=== PATIENT | male | born 1950 | race Caucasian/White ===

== ENCOUNTER 2018-04-23 13:13 | Emergency (ER) | payer OTHER ==
[2018-04-23 13:25] VITALS: BP 125/56; PULSE 77; TEMP 97.8; BMI 27.6
[2018-04-23] MEDS ORDERED: diazePAM 5 MG TABLET PO ONE (14:35)
[2018-04-23] MEDS ORDERED: KETOROLAC TROMETHAMINE 30 MG/1 ML VIAL IM ONE (14:35)
--- NOTE | 2018-04-23 14:41 | PDOC ---
History of Present Illness - General Chief Complaint: Head/Neck problem Stated Complaint: ARM NUMBNESS, NECK PAIN, Time Seen by Provider: 04/23/18 14:19 History Source: Patient - History of Present Illness Occurred: reports: other Severity: reports: severe Upper Extremity Pain Location: left: shoulder Past History - Past Medical History Allergies/Adverse Reactions: Allergies Allergy/AdvReac Type Severity Reaction Status Date / Time No Known Allergies Allergy Verified 04/23/18 13:24 Home Medications: Ambulatory Orders Naproxen 500 mg PO BID #20 tablet 04/23/18 COPD: No - Suicide/Smoking/Psychosocial Hx Smoking History: Never smoked Review of Systems - Review of Systems Constitutional: No: Chills, Fever Respiratory: No: Shortness of Breath Cardiac (ROS): No: Chest Pain Neurological: No: Headache, Numbness, Tingling, Weakness, Dizziness *Physical Exam - Vital Signs Last Vital Signs Temp Pulse Resp BP Pulse Ox 97.8 F 77 18 125/56 L 99 04/23/18 13:16 04/23/18 13:16 04/23/18 13:16 04/23/18 13:16 04/23/18 13:16 - Physical Exam General Appearance: Yes: Appropriately Dressed, Mild Distress HEENT: positive: Normal Voice Neck: positive: Supple. negative: Tender Respiratory/Chest: positive: Lungs Clear, Normal Breath Sounds. negative: Respiratory Distress Cardiovascular: positive: Regular Rate, S1, S2 Extremity: positive: Normal Inspection, Tender (to superior/mid L shoulderblade , painful ROM) Integumentary: positive: Dry, Warm. negative: Rash Neurologic: positive: Fully Oriented, Alert, Normal Mood/Affect, Motor Strength 5/5. negative: Sensory Deficit ED Treatment Course - RADIOLOGY Radiology Studies Ordered: Category Date Time Status SHOULDER-LEFT [RAD] Stat Radiology 04/23/18 14:36 Ordered Medical Decision Making - Medical Decision Making 04/23/18 14:36 67-year-old male, history of asthma, currently on doxycycline after removing a tick from L leg 5 days ago, here with L shoulder pain. As per , patient started reporting L shoulder pain sometime after helping his daughter shovel snow 3 days ago. Patient reports pain is located to his left shoulder blade, sharp, constant and only worse with certain movements. No sensory changes or weakness to upper extremity and no neck pain, headache or dizziness. Has not taken anything for pain. Pt denies CP or SOB See exam Possibly MSK L shoulder pain Possibly incited by shoveling snow No fall Unlikely cardiac No neuro sxs to suggest radiculopathy at this time Stable w/ exam only remarkable for sig ttp over superior to mid aspect of L shoulder blade w/ painful ROM -pain control -reassess 04/23/18 15:44 Xray unremarkable. Patient reports some improvement in pain. Will discharge with pain control and have patient follow up with PMD as needed *DC/Admit/Observation/Transfer Diagnosis at time of Disposition: Shoulder pain, left Qualifiers: Chronicity: acute Qualified Code(s): M25.512 - Pain in left shoulder - Discharge Dispostion Disposition: HOME Condition at time of disposition: Improved - Prescriptions Prescriptions: Naproxen 500 mg PO BID #20 tablet - Referrals Referrals: Narsin Collado MD [Primary Care Provider] - - Patient Instructions Printed Discharge Instructions: DI for Shoulder Pain Additional Instructions: X-ray showed no fractures. Your pain is most likely muscular. Take medication as directed. If symptoms persist after this coming week, follow-up with your primary care physician - Post Discharge Activity
[2018-04-23] MEDS ORDERED: diazePAM 5 MG TABLET ONE (14:44)
[2018-04-23] MEDS ORDERED: KETOROLAC TROMETHAMINE 30 MG/1 ML VIAL ONE (14:44)
== END 2018-04-23 16:30 | disposition home or self-care (01) ==
LOC: JER 13:13
PROC: 3E0233Z Introduction of Anti-inflammatory into Muscle, Percutaneous Approach (ICD-10-PCS; principal; 2018-04-23)
DX: M25.512 Pain in left shoulder (principal); X50.0XXA Overexertion from strenuous movement or load, initial encounter; Y93.H1 Activity, digging, shoveling and raking; Y92.89 Other specified places as the place of occurrence of the external cause; Y99.8 Other external cause status
CPT/HCPCS: 73030-TC-LT-FY; 96372; 99281-25

== ENCOUNTER 2018-10-18 13:47 | Inpatient (IN) | payer BC, OTHER ==
--- NOTE | 2018-10-18 13:56 | PDOC ---
Rapid Medical Evaluation Chief Complaint: Urinary Problem Time Seen by Provider: 10/18/18 13:52 Medical Evaluation: Allergies Allergy/AdvReac Type Severity Reaction Status Date / Time No Known Allergies Allergy Verified 04/23/18 13:24 10/18/18 13:52 I have briefly evaluated the patient Pt presents for urinary retention for 1 day. States he was only able to urinate a little at the doctors office this afternoon Exam: TTP of the suprapubic area. L CVA tenderness Orders: Urine, labs Pt to proceed to the ER for further evaluation Discharge Disposition - Diagnosis Inability to urinate - Referrals - Patient Instructions - Post Discharge Activity
[2018-10-18 14:48] LABS: BASO % 0.3 % (0-2.0); EOS % 0.5 % (0-4.5); HEMATOCRIT 46.6 % (35.4-49); HEMOGLOBIN 15.4 GM/dL (11.7-16.9); LYMPH % 12.1 % (8-40); MCH 29.7 pg (25.7-33.7); MCHC 33.1 g/dl (32.0-35.9); MEAN CELL VOLUME 89.7 fl (80-96); MEAN PLT VOLUME 7.3 fl (7.5-11.1); MONO % 4.1 % (3.8-10.2); PLATELET COUNT 204 K/MM3 (134-434); RBC 5.19 M/mm3 (4.00-5.60); WHITE BLOOD COUNT 12.8 K/mm3 (4.0-10.0)
[2018-10-18 14:49] LABS: URINE APPEARANCE CLEAR; URINE BILIRUBIN NEGATIVE (NEGATIVE); URINE COLOR YELLOW; URINE GLUCOSE (UA) NEGATIVE (NEGATIVE); URINE KETONE TRACE (NEGATIVE); URINE LEUK ESTERASE NEGATIVE (NEGATIVE); URINE NITRITE NEGATIVE (NEGATIVE); URINE PROTEIN NEGATIVE (NEGATIVE)
[2018-10-18 14:59] LABS: INR 1.03 (0.83-1.09); PROTHROMBIN TIME (PATIENT) 12.1 SEC (9.7-13.0)
[2018-10-18 15:22] LABS: ALBUMIN 4.2 g/dl (3.4-5.0); BILIRUBIN,TOTAL 0.6 mg/dL (0.2-1); CALCIUM 9.7 mg/dL (8.5-10.1); CREATININE 1.2 mg/dL (0.55-1.3); POTASSIUM 4.1 mmol/L (3.5-5.1); TOT PROT 7.2 g/dl (6.4-8.2)
--- NOTE | 2018-10-18 16:07 | PDOC ---
Documentation entered by Elsie Badillo SCRIBE, acting as scribe for Brendon Araujo MD. Brendon Araujo MD: This documentation has been prepared by the Justino turner Renju, SCRIBE, under my direction and personally reviewed by me in its entirety. I confirm that the documentation accurately reflects all work, treatment, procedures, and medical decision making performed by me. History of Present Illness - General History Source: Patient Exam Limitations: No Limitations - History of Present Illness Initial Comments: 10/18/18 15:37 The patient is a 68 year old macedonian-speaking male with a history of prostate disease and asthma who presents to the emergency department for evaluation of a two day history of urinary retention. Patient states he did not have any symptoms last night, but endorses urinary frequency, noting he would output a minimal amount of urine every 30 minutes. Today, the patient reports waking up with moderate lower abdominal pain and left flank pain with associated symptoms of abdominal distention, dysuria, and decreased urinary output with urinary frequency. He also endorses nausea with one episode of non bloody emesis after eating breakfast this morning. Patient denies taking medication for the aforementioned pain. He states he saw his primary doctor last week for urinary frequency. The patient denies chest pain, shortness of breath, headache, and dizziness. Denies fevers, chills, diarrhea, and constipation. Allergies: No known allergies. Social History: No reported alcohol, cigarette, or drug use. Surgical History: Denies. PCP: Dr. Nasrin Collado <Brendon Araujo - Last Filed: 10/18/18 18:12> <Marcia Manuel - Last Filed: 10/18/18 19:10> - General Chief Complaint: Urinary Problem Stated Complaint: DIFFICULTY URINARY Time Seen by Provider: 10/18/18 13:52 Past History - Past Medical History Asthma: Yes COPD: No - Suicide/Smoking/Psychosocial Hx Smoking History: Never smoked <Brendon Araujo - Last Filed: 10/18/18 18:12> <Marcia Manuel - Last Filed: 10/18/18 19:10> - Past Medical History Allergies/Adverse Reactions: Allergies Allergy/AdvReac Type Severity Reaction Status Date / Time No Known Allergies Allergy Verified 04/23/18 13:24 Review of Systems - Review of Systems Constitutional: No: Chills, Fever Respiratory: No: Cough, Shortness of Breath Cardiac (ROS): No: Chest Pain ABD/GI: Yes: Nausea, Vomiting. No: Constipated, Diarrhea : Yes: See HPI Neurological: No: Headache All Other Systems: Reviewed and Negative <Brendon Araujo - Last Filed: 10/18/18 18:12> *Physical Exam - Vital Signs Last Vital Signs Temp Pulse Resp BP Pulse Ox 97.5 F L 55 L 24 H 129/75 96 10/18/18 13:52 10/18/18 13:52 10/18/18 13:52 10/18/18 13:52 10/18/18 13:52 - Physical Exam Comments: 10/18/18 15:42 GENERAL: The patient is awake, alert, and fully oriented, in no acute distress. HEAD: Normal with no signs of trauma. EYES: Pupils equal, round and reactive to light, extraocular movements intact, sclera anicteric, conjunctiva clear with no pallor. ENT: Ears normal, nares patent, Moist mucous membranes. NECK: Normal range of motion, supple without, JVD, or masses. LUNGS: Breath sounds equal, clear to auscultation bilaterally. No wheeze/ crackles. HEART: Regular rate and rhythm, normal S1 and S2 without murmur or rub. ABDOMEN/: (+)Positive left CVA discomfort to palpation. (+)distended bladder palpable to below the umbilicus. no hernia, no edema. Uncircumcised, (+)otto catheter in place with 50cc of pink urine. Otto catheter flushed with small amount of blood tinged output, but reobstruction. EXTREMITIES: Normal range of motion, no edema. No clubbing or cyanosis. No cords, erythema, or tenderness. NEUROLOGICAL: Cranial nerves II through XII grossly intact. Normal speech, normal gait. PSYCH: Normal mood, normal affect. SKIN: Warm, Dry, normal turgor, no rashes or lesions noted. <Brendon Araujo - Last Filed: 10/18/18 18:12> - Vital Signs Last Vital Signs Temp Pulse Resp BP Pulse Ox 97.5 F L 70 18 144/86 98 10/18/18 13:52 10/18/18 17:22 10/18/18 17:22 10/18/18 17:22 10/18/18 18:33 <Marcia Manuel - Last Filed: 10/18/18 19:10> ED Treatment Course - LABORATORY CBC & Chemistry Diagram: 10/18/18 14:33 10/18/18 14:30 - ADDITIONAL ORDERS Additional order review: Laboratory Results 10/18/18 10/18/18 10/18/18 14:33 14:33 14:30 PT with INR 12.10 INR 1.03 Sodium 137 Potassium 4.1 Chloride 105 Carbon Dioxide 27 Anion Gap 6 L BUN 22 H Creatinine 1.2 Est GFR (CKD-EPI)AfAm 71.58 Est GFR (CKD-EPI)NonAf 61.76 Random Glucose 174 H Calcium 9.7 Total Bilirubin 0.6 AST 23 ALT 34 Alkaline Phosphatase 55 Total Protein 7.2 Albumin 4.2 Urine Color Yellow Urine Appearance Clear Urine pH 6.0 Ur Specific [place] 1.023 Urine Protein Negative Urine Glucose (UA) Negative Urine Ketones Trace H Urine Blood Negative Urine Nitrite Negative Urine Bilirubin Negative Urine Urobilinogen 1.0 Ur Leukocyte Esterase Negative 10/18/18 14:33 RBC 5.19 MCV 89.7 MCHC 33.1 RDW 13.0 MPV 7.3 L Neutrophils % 83.0 H Lymphocytes % 12.1 Monocytes % 4.1 Eosinophils % 0.5 Basophils % 0.3 - RADIOLOGY Radiology Studies Ordered: Category Date Time Status ABDOMEN & PELVIS CT W/O CONTR [CT] Stat CT Scan 10/18/18 16:00 Ordered <Brendon Araujo - Last Filed: 10/18/18 18:12> - LABORATORY CBC & Chemistry Diagram: 10/18/18 14:33 10/18/18 14:30 - ADDITIONAL ORDERS Additional order review: Laboratory Results 10/18/18 10/18/18 10/18/18 14:33 14:33 14:30 PT with INR 12.10 INR 1.03 Sodium 137 Potassium 4.1 Chloride 105 Carbon Dioxide 27 Anion Gap 6 L BUN 22 H Creatinine 1.2 Est GFR (CKD-EPI)AfAm 71.58 Est GFR (CKD-EPI)NonAf 61.76 Random Glucose 174 H Calcium 9.7 Total Bilirubin 0.6 AST 23 ALT 34 Alkaline Phosphatase 55 Total Protein 7.2 Albumin 4.2 Urine Color Yellow Urine Appearance Clear Urine pH 6.0 Ur Specific [place] 1.023 Urine Protein Negative Urine Glucose (UA) Negative Urine Ketones Trace H Urine Blood Negative Urine Nitrite Negative Urine Bilirubin Negative Urine Urobilinogen 1.0 Ur Leukocyte Esterase Negative 10/18/18 14:33 RBC 5.19 MCV 89.7 MCHC 33.1 RDW 13.0 MPV 7.3 L Neutrophils % 83.0 H Lymphocytes % 12.1 Monocytes % 4.1 Eosinophils % 0.5 Basophils % 0.3 - Medications Given in the ED: ED Medications Discontinued Medications Generic Name Dose Route Start Last Admin Trade Name Freq PRN Reason Stop Dose Admin Ketorolac Tromethamine 30 mg 10/18/18 17:33 10/18/18 17:57 Toradol Injection - IVPUSH 10/18/18 17:34 30 mg ONCE ONE Administration <Marcia Manuel - Last Filed: 10/18/18 19:10> Medical Decision Making - Medical Decision Making 10/18/18 16:02 68-year-old male with history of prostate enlargement presents with lower abdominal pain and difficulty urinating for 2 days, worsened today. Patient reports urinary frequency without dysuria yesterday, today has been only able to pass drops of urine, experiencing increased suprapubic pressure and left flank discomfort with an episode of nausea/vomiting. No fevers or chills. No reported history of urological surgeries. Afebrile, vital signs stable Alert, speaking full sentences, speaks only Khmer Standing at bedside, well-appearing but in some discomfort Heart is regular, lungs are clear Positive left CVA discomfort to palpation, distended bladder palpable to below the umbilicus No palpable hernia, uncircumcised penis without urethral discharge 68-year-old male with difficulty urinating and left flank pain, question primary retention secondary to prostate enlargement, question renal colic resulting in hematuria and obstruction. Labs were sent from triage - white count 12.8, creatinine 1.2 without prior available for comparison. Urinalysis clear with only trace ketones. Otto catheter placed in ED, only 50 mL of pink urine output. Otto was flushed , blood clots retracted. Urine output was persistently obstructed, Otto catheter switched to a 3-way catheter for TBI, resulted in about 1 L of urine output pink urine with improved symptoms, follow-up with her. Ultrasound showed collapsed bladder but some hydronephrosis on the left. Check CTAP to rule out obstructing stone. 10/18/18 17:17 on my prelim review, there is a large renal pelvis stone and what appears to be an obstructive distal L ureteral stone with hydronephrosis. so presentation seems most consistent with nephrolithiasis causes hematuria with retention 2/2 clot. labs wnl, ua clear. will need admission for pain control, likely decompression of large stone. Awaiting CT read, will consult urology. 10/18/18 18:[address] Abebe at 18:09, agrees with management, will consult. Proceed with [facility] to [facility], covering [facility]. <Brendon Araujo - Last Filed: 10/18/18 18:12> *DC/Admit/Observation/Transfer <Brendon Araujo - Last Filed: 10/18/18 18:12> - Discharge Dispostion Decision to Admit order: Yes <Marcia Manuel - Last Filed: 10/18/18 19:10> Diagnosis at time of Disposition: Inability to urinate, Urinary retention, Renal calculi - Referrals Referrals: Nasrin Collado MD [Primary Care Provider] - - Patient Instructions - Post Discharge Activity
[2018-10-18] MEDS ORDERED: KETOROLAC TROMETHAMINE 30 MG/1 ML VIAL IVPUSH ONE (17:33)
[2018-10-18] MEDS ORDERED: SODIUM CHLORIDE 1,000 ML IV ONE (17:35)
[2018-10-18] MEDS ORDERED: KETOROLAC TROMETHAMINE 30 MG/1 ML VIAL ONE (17:49)
[2018-10-18] MEDS ORDERED: ACETAMINOPHEN 325 MG TABLET (FP) PO PRN (19:06)
[2018-10-18] MEDS ORDERED: ALBUTEROL SO4 0.083% IH SOL 2.5 MG/3 ML VIAL.NEB. NEB PRN (19:09)
--- NOTE | 2018-10-18 19:10 | HP ---
CHIEF COMPLAINT: urinary retention x 2 days PCP: Dr. Collado HISTORY OF PRESENT ILLNESS: 68 y/o marshallese speaking M with hx asthma who presents to the ED c/o urinary retention over the past two days. As per pt, he suddenly developed urinary retention two days ago. States that he had urinary frequency, however when he urinated the output was decreased. During this time, he has also had dysuria. Today, pt began to have L flank pain that was intermittent, w/ radiation to his groin. Also noticed hematuria with passage of clots. For this reason, he came to the ED to get evaluated. Does not follow with a urologist. Saw his PMD on and had routine blood work done, however this issue had not come up yet. No hx of kidney stones. Denies ORTEGA, fever, chills, SOB, chest pain or pressure, or changes in bowel function. Had not been dx with prostate problems previously. While in the ER, pt had a otto placed d/t urinary retention. 50 cc pink urine output. D/t continued retention with otto, pt was placed on CBI. 1.8L in, 1.8 L pink urinary output. ER course was notable for: (1) CBI (2) toradol 30x1 (3) Recent Travel: denies PAST MEDICAL HISTORY: as above PAST SURGICAL HISTORY: R torn rotator cuff Social History: retired; worked in a factory Smoking: denies Alcohol: denies Drugs: denies Family History: brother - ?spine cancer with possible mets Allergies No Known Allergies Allergy (Verified 04/23/18 13:24) HOME MEDICATIONS: Home Medications Medication Instructions Recorded Albuterol Sulfate Inhaler - 1 puff IH Q6H PRN 10/18/18 [Ventolin HFA Inhaler -] Budesonide/Formeterol Fumarate 1 inh PO BID 10/18/18 [SYMBICORT 160/4.5mcg -] dosages, meds confirmed with patient verbally needs med rec from pharmacy REVIEW OF SYSTEMS CONSTITUTIONAL: Absent: fever, chills, diaphoresis, generalized weakness, malaise, loss of appetite, weight change HEENT: Absent: rhinorrhea, nasal congestion, throat pain, throat swelling, difficulty swallowing, mouth swelling, ear pain, eye pain, visual changes CARDIOVASCULAR: Absent: chest pain, syncope, palpitations, irregular heart rate, lightheadedness , peripheral edema RESPIRATORY: Absent: cough, shortness of breath, dyspnea with exertion, orthopnea, wheezing, stridor, hemoptysis GASTROINTESTINAL: Absent: abdominal pain, abdominal distension, nausea, vomiting, diarrhea, constipation, melena, hematochezia GENITOURINARY: +dysuria, frequency, flank pain Absent: dysuria, frequency, urgency, hesitancy, hematuria, flank pain, genital pain MUSCULOSKELETAL: Absent: myalgia, arthralgia, joint swelling, back pain, neck pain SKIN: Absent: rash, itching, pallor HEMATOLOGIC/IMMUNOLOGIC: Absent: easy bleeding, easy bruising, lymphadenopathy, frequent infections ENDOCRINE: Absent: unexplained weight gain, unexplained weight loss, heat intolerance, cold intolerance NEUROLOGIC: Absent: headache, focal weakness or paresthesias, dizziness, unsteady gait, seizure, mental status changes, bladder or bowel incontinence PSYCHIATRIC: Absent: anxiety, depression, suicidal or homicidal ideation, hallucinations. PHYSICAL EXAMINATION Vital Signs 10/18/18 10/18/18 13:52 17:22 Temperature 97.5 F L Pulse Rate 55 L Pulse Rate [ 70 Left Radial] Respiratory 24 H 18 Rate Blood Pressure 129/75 Blood Pressure 144/86 [Left Arm] O2 Sat by Pulse 96 97 Oximetry (%) GENERAL: Standing comfortably. Awake, alert, and fully oriented, in no acute distress. HEAD: Normal with no signs of trauma. EYES: Pupils equal, round and reactive to light, extraocular movements intact, sclera anicteric, conjunctiva clear. EARS, NOSE, THROAT: Ears normal, nares patent, oropharynx clear without exudates. Moist mucous membranes. NECK: Normal range of motion, supple LUNGS: Breath sounds equal, clear to auscultation bilaterally. No wheezes, and no crackles. No accessory muscle use. HEART: Regular rate and rhythm, normal S1 and S2 without murmur, rub or gallop. ABDOMEN: Soft, obese, nontender, not distended, normoactive bowel sounds, no guarding MSK: +L cva tenderness LOWER EXTREMITIES: 2+ pt pulses, warm, well-perfused. No calf tenderness. No peripheral edema. : +CBI in place; continued irrigation NEUROLOGICAL: Cranial nerves II-XII intact. Normal speech. Normal gait. 5/5 motor strength UE, LE. PSYCHIATRIC: Cooperative. Good eye contact. SKIN: Warm, dry, normal turgor Laboratory Results - last 24 hr 10/18/18 10/18/18 10/18/18 14:30 14:33 14:33 WBC 12.8 H RBC 5.19 Hgb 15.4 Hct 46.6 MCV 89.7 MCH 29.7 MCHC 33.1 RDW 13.0 Plt Count 204 MPV 7.3 L Absolute Neuts (auto) 10.7 H Neutrophils % 83.0 H Lymphocytes % 12.1 Monocytes % 4.1 Eosinophils % 0.5 Basophils % 0.3 Nucleated RBC % 0 PT with INR 12.10 INR 1.03 Sodium 137 Potassium 4.1 Chloride 105 Carbon Dioxide 27 Anion Gap 6 L BUN 22 H Creatinine 1.2 Est GFR (CKD-EPI)AfAm 71.58 Est GFR (CKD-EPI)NonAf 61.76 Random Glucose 174 H Calcium 9.7 Total Bilirubin 0.6 AST 23 ALT 34 Alkaline Phosphatase 55 Total Protein 7.2 Albumin 4.2 Urine Color Urine Appearance Urine pH Ur Specific [place] Urine Protein Urine Glucose (UA) Urine Ketones Urine Blood Urine Nitrite Urine Bilirubin Urine Urobilinogen Ur Leukocyte Esterase 10/18/18 14:33 WBC RBC Hgb Hct MCV MCH MCHC RDW Plt Count MPV Absolute Neuts (auto) Neutrophils % Lymphocytes % Monocytes % Eosinophils % Basophils % Nucleated RBC % PT with INR INR Sodium Potassium Chloride Carbon Dioxide Anion Gap BUN Creatinine Est GFR (CKD-EPI)AfAm Est GFR (CKD-EPI)NonAf Random Glucose Calcium Total Bilirubin AST ALT Alkaline Phosphatase Total Protein Albumin Urine Color Yellow Urine Appearance Clear Urine pH 6.0 Ur Specific [place] 1.023 Urine Protein Negative Urine Glucose (UA) Negative Urine Ketones Trace H Urine Blood Negative Urine Nitrite Negative Urine Bilirubin Negative Urine Urobilinogen 1.0 Ur Leukocyte Esterase Negative EKG: requested, pending CTAP: 3 mm calc in distal L ureter, 3 cm from UVJ. w mild to mod L hydroureter. 1.1x0.9.x0.5cm calc non obst at L renal lower pole . otto in place. non-obst phlebolith on R without hydro. moderate prostate enlargement. +lumbar degen disc dz. ASSESSMENT/PLAN: 68 y/o marshallese speaking M with hx asthma who presents to the ED c/o urinary retention over the past two days. #obstructing 3mm calc distal L ureter w/ L hydro -c/w CBI, flomax, strain urine -bladder scan as needed -will likely need lithotripsy to improve hydro and UO, however await uro recs -in case of procedure, NPO, T+S, coags -no need for abx at this time as pt not septic. if spikes temp, can add abx -IV LR 75 cc/hr, NS for CBI -pain control tylenol PRN. pt appears comfortable -uro on board: Dr. Abebe. #hx asthma -c/w symbicort, nebs PRN -meds need to be verified with pharma #BPH -started pt on flomax #hyperglycemia -f/u a1c. can add ISS if needed then #leukocytosis -likely 2/2 obstruction. cont to monitor not septic at this pt #F/E/ N IV LR 75 cc/hr continue to follow lytes NPO #PPX DVT: SCD's, as for possible procedure #Dispo med-surg obs Visit type - Emergency Visit Emergency Visit: Yes ED Registration Date: 10/18/18 Care time: The patient presented to the Emergency Department on the above date and was hospitalized for further evaluation of their emergent condition. - New Patient This patient is new to me today: Yes Date on this admission: 10/18/18 - Critical Care Critical Care patient: No
--- NOTE | 2018-10-18 19:23 | PN ---
Teaching Attending Note Name of Resident: Ghazala Perry ATTENDING PHYSICIAN STATEMENT I saw and evaluated the patient. I reviewed the resident's note and discussed the case with the resident. I agree with the resident's findings and plan as documented. SUBJECTIVE: Seen and examined; please refer to resident note for further historical information. Briefly, patient presents with obstructing renal stone. He comes in with lower abdominal pain and urinary frequency without dysuria yesterday, today has been only able to pass drops of urine, experiencing increased suprapubic pressure and L-flank pain; there is association of hematuria/clots. Never saw uro before, no recent abx, no systemic sx. In the ER otto was placed ; 50 before CBI and 1500 after CBI; no abx given in the ER. Imaging shows a 3mm distal L-ureteral calculus at the level of the lower pelvis with mild to moderate ipsilateral hydro and a 1.1x0.9x0.5m L-renal lower pole calculus which is nonobstructing. 10 sys ROS done and negative aside from HPI PMH, PSH, FH, SH reviewed OBJECTIVE: VS, labs, imaging reviewed NAD, AAO, resting comfortably n bed NC AT EOMI PERRLA RRR s1/2 no mgr Lungs CTAB, w/ sym exp NT ND +BS; mild L-sided flank pain CN2-12 wnl, no fnd Normal mood, appropriate behavior ASSESSMENT AND PLAN: Patient presents with frequency, passing clots found to have mild to moderate L- sided hydro with good output with CBI; urology to see. UA not suspicious for infection and WBC may be [id number] 1) L-hydronephrosis with distal ureteral calculus -Size noted; defer procedural management to urology -PRN pain and nausea management -Continue CBI; monitor scans, output, etc. If any issues overnight call urology -Monitor creatinine for obstructive uropathy -Continue tamsulosin 2) Hyperglycemia -Check A1c; may be reactive 3) Leukocytosis -No fever; could be reactive. Cover with abx if febrile overnight 4) Prostate enlargement -On tamsulosin 5) Asthma -Continue home meds; no exacerbation 6) Overweight -Armature Coil Winder prior to DC Full Code
[2018-10-18] MEDS: LACTATED RINGERS SOLUTION 1,000 ML/1,000 ML INFUS.BAG IV SCH (20:10)
[2018-10-18 20:23] LABS: INR 1.03 (0.83-1.09); PROTHROMBIN TIME (PATIENT) 12.1 SEC (9.7-13.0)
[2018-10-18 20:26] LABS: ACTIVATED PTT 29.2 SECONDS (25.2-36.5)
[2018-10-18 22:37] VITALS: BMI 28.9
[2018-10-19] MEDS: BUDESONIDE/FORMETEROL FUMARATE 160/4.5 mcg INHALER IH SCH ×3 (01:57→21:00)
[2018-10-19 07:36] LABS: BASO % 0.6 % (0-2.0); EOS % 0.3 % (0-4.5); HEMATOCRIT 40.3 % (35.4-49); HEMOGLOBIN 13.8 GM/dL (11.7-16.9); LYMPH % 18.7 % (8-40); MCH 30.4 pg (25.7-33.7); MCHC 34.3 g/dl (32.0-35.9); MEAN CELL VOLUME 88.6 fl (80-96); MONO % 6.9 % (3.8-10.2); NEUT % 73.5 % (42.8-82.8); PLATELET COUNT 181 K/MM3 (134-434); RBC 4.54 M/mm3 (4.00-5.60); RDW 12.9 % (11.9-15.9); WHITE BLOOD COUNT 7.8 K/mm3 (4.0-10.0)
[2018-10-19 08:08] LABS: CALCIUM 8.9 mg/dL (8.5-10.1); CREATININE 1.1 mg/dL (0.55-1.3); MAGNESIUM 2.3 mg/dL (1.8-2.4); PHOSPHOROUS 3.2 mg/dL (2.5-4.9); POTASSIUM 3.7 mmol/L (3.5-5.1)
[2018-10-19] MEDS: TAMSULOSIN HCL 0.4 MG CAP PO SCH (10:05)
--- NOTE | 2018-10-19 10:50 | EKG ---
Test Reason : Blood Pressure : / mmHG Vent. Rate : 087 BPM Atrial Rate : 087 BPM P-R Int : 168 ms QRS Dur : 104 ms QT Int : 366 ms P-R-T Axes : 055 -29 006 degrees QTc Int : 440 ms NORMAL SINUS RHYTHM NORMAL ECG NO PREVIOUS ECGS AVAILABLE Confirmed by RUBI ESQUIVEL, GONZÁLEZ ([id number]) on 10/19/2018 10:49:42 AM Referred By: Confirmed By:GONZÁLEZ VENEGAS MD
[2018-10-19] MEDS: LACTATED RINGERS SOLUTION 1,000 ML/1,000 ML INFUS.BAG IV SCH ×2 (12:44→20:49)
--- NOTE | 2018-10-19 15:06 | PN ---
Physical Exam: SUBJECTIVE: Patient seen and examined at bedside. no acute events overnight. has not passed stone. denies fever, chills, cp, sob , n/v/d OBJECTIVE: Vital Signs Period Temp Pulse Resp BP Sys/Floyd Pulse Ox Last 24 Hr 98.0 F-98.8 F 57-90 18-20 123-144/59-89 95-98 GENERAL: Standing comfortably. Awake, alert, and fully oriented, in no acute distress. HEAD: Normal with no signs of trauma. EYES: Pupils equal, round and reactive to light, extraocular movements intact, sclera anicteric, conjunctiva clear. EARS, NOSE, THROAT: nares patent, oropharynx clear without exudates. Moist mucous membranes. NECK: Normal range of motion, supple LUNGS: CTAB HEART: RRR, normal S1 and S2 without murmur, rub or gallop. ABDOMEN: Soft, obese, nontender, not distended, normoactive bowel sounds, no guarding MSK: +L cva tenderness, improving LOWER EXTREMITIES: 2+ pt pulses, warm, well-perfused. No calf tenderness. No peripheral edema. : +CBI in place; continued irrigation NEUROLOGICAL: Cranial nerves II-XII intact. Normal speech. Normal gait. 5/5 motor strength UE, LE. PSYCHIATRIC: Cooperative. Good eye contact. SKIN: Warm, dry, normal turgor Laboratory Results - last 24 hr 10/18/18 10/18/18 10/18/18 14:30 14:33 19:50 WBC RBC Hgb Hct MCV MCH MCHC RDW Plt Count MPV Absolute Neuts (auto) Neutrophils % Lymphocytes % Monocytes % Eosinophils % Basophils % Nucleated RBC % PT with INR 12.10 INR 1.03 PTT (Actin FS) 29.2 Sodium 137 Potassium 4.1 Chloride 105 Carbon Dioxide 27 Anion Gap 6 L BUN 22 H Creatinine 1.2 Est GFR (CKD-EPI)AfAm 71.58 Est GFR (CKD-EPI)NonAf 61.76 Random Glucose 174 H Hemoglobin A1c % 5.2 Calcium 9.7 Phosphorus Magnesium Total Bilirubin 0.6 AST 23 ALT 34 Alkaline Phosphatase 55 Total Protein 7.2 Albumin 4.2 Blood Type Antibody Screen 10/18/18 10/19/18 10/19/18 19:50 07:15 07:15 WBC 7.8 RBC 4.54 Hgb 13.8 Hct 40.3 MCV 88.6 MCH 30.4 MCHC 34.3 RDW 12.9 Plt Count 181 MPV 7.0 L Absolute Neuts (auto) 5.8 Neutrophils % 73.5 Lymphocytes % 18.7 D Monocytes % 6.9 Eosinophils % 0.3 Basophils % 0.6 Nucleated RBC % 0 PT with INR INR PTT (Actin FS) Sodium Potassium Chloride Carbon Dioxide Anion Gap BUN Creatinine Est GFR (CKD-EPI)AfAm Est GFR (CKD-EPI)NonAf Random Glucose Hemoglobin A1c % Calcium Phosphorus Magnesium Total Bilirubin AST ALT Alkaline Phosphatase Total Protein Albumin Blood Type B POSITIVE B POSITIVE Antibody Screen Negative 10/19/18 07:15 WBC RBC Hgb Hct MCV MCH MCHC RDW Plt Count MPV Absolute Neuts (auto) Neutrophils % Lymphocytes % Monocytes % Eosinophils % Basophils % Nucleated RBC % PT with INR INR PTT (Actin FS) Sodium 142 Potassium 3.7 Chloride 109 H Carbon Dioxide 27 Anion Gap 6 L BUN 30 H Creatinine 1.1 Est GFR (CKD-EPI)AfAm 79.52 Est GFR (CKD-EPI)NonAf 68.61 Random Glucose 96 Hemoglobin A1c % Calcium 8.9 Phosphorus 3.2 Magnesium 2.3 Total Bilirubin AST ALT Alkaline Phosphatase Total Protein Albumin Blood Type Antibody Screen Active Medications Generic Name Dose Route Start Last Admin Trade Name Freq PRN Reason Stop Dose Admin Acetaminophen 650 mg 10/18/18 19:06 Tylenol - PO Q6H PRN PAIN LEVEL 7 - 10 Albuterol Sulfate 1 amp 10/18/18 19:09 Ventolin 0.083% Nebulizer Soln - NEB Q4H PRN SHORTNESS OF BREATH Budesonide/Formoterol Fumarate 2 puff 10/18/18 22:00 10/19/18 10:05 Symbicort 160/4.5mcg - IH 2 puff BID LEYDI Administration Lactated Ringer's 1,000 ml in 1,000 mls @ 75 mls/hr 10/18/18 19:45 10/19/18 12:44 Lactated Ringers Solution IV 75 mls/hr ASDIR LEYDI Administration Tamsulosin HCl 0.4 mg 10/19/18 08:30 10/19/18 10:05 Flomax - PO Not Given DAILY@0830 [facility] EKG: requested, pending CTAP: 3 mm calc in distal L ureter, 3 cm from UVJ. w mild to mod L hydroureter. 1.1x0.9.x0.5cm calc non obst at L renal lower pole . otto in place. non-obst phlebolith on R without hydro. moderate prostate enlargement. +lumbar degen disc dz. ASSESSMENT/PLAN: 68 y/o pashto speaking M with hx asthma who presents to the ED c/o urinary retention over the past two days. #obstructing 3mm calc distal L ureter w/ L hydro -c/w CBI, flomax, strain urine -bladder scan as needed -will likely need lithotripsy to improve hydro and UO, however await uro recs -in case of procedure, NPO at midnight -no need for abx at this time as pt not septic. if spikes temp, can add abx -IV LR 75 cc/hr, NS for CBI -pain control tylenol PRN. pt appears comfortable -uro on board: Dr. Abebe. #hx asthma -c/w symbicort, nebs PRN #BPH -c/w flomax #hyperglycemia - resolved -a1c 5.2 #leukocytosis - resolved -likely 2/2 obstruction. cont to monitor not septic at this pt #F/E/ N IV LR 75 cc/hr continue to follow lytes regular diet, NPO at midnight in case of procedure #PPX DVT: SCD's, as for possible procedure #Dispo med-surg obs Visit type - Emergency Visit Emergency Visit: Yes ED Registration Date: 10/18/18 Care time: The patient presented to the Emergency Department on the above date and was hospitalized for further evaluation of their emergent condition. - New Patient This patient is new to me today: Yes Date on this admission: 10/19/18 - Critical Care Critical Care patient: No
--- NOTE | 2018-10-19 17:30 | PN ---
Teaching Attending Note Name of Resident: Vishnu Duffy ATTENDING PHYSICIAN STATEMENT I saw and evaluated the patient. I reviewed the resident's note and discussed the case with the resident. I agree with the resident's findings and plan as documented. SUBJECTIVE: no pain in abd at time of eval 11 am. no fever or chills. discomfort in penis withfoley in . OBJECTIVE: NAD Cv : RRR, no MRG Lungs: CTAB ext : no edema Abd: soft, NT, Nd , NLBS otto in . pink urine ASSESSMENT AND PLAN: 68 y/o man with h/o Asthma, who presented with pain in abd and hematuria and was found to have L obstructing uretheral stone with hydronephrosis. 1- Obstructing L uretheral stone: - cont otto - cont IVF - CBI - uro was called , no eval yet - cont flomax - no signs of UTI - strain all urine 2- hyperglycemia . A1c 5.2 3- DVT P X: SCDs
--- NOTE | 2018-10-19 18:26 | CONS ---
DATE OF CONSULTATION: DATE OF DICTATION: 10/19/2018 HISTORY OF PRESENT ILLNESS: The patient is a 68-year-old Albanian gentleman. History obtained both from patient and his sister. Patient presented to the emergency room yesterday with severe left flank pain that had started some hours prior to his presentation. Shortly before coming to the ER in addition to the flank pain, the patient began experiencing urinary dribbling and difficulty voiding. In the emergency room, patient was found to have a distended bladder and a Gaines was inserted. A large volume of urine which became bloody was emptied. The initial catheter that was placed became occluded and a 3-way Gaines was then inserted. CBI was begun. At the time, the patient was seen . His urine was grossly clear. CAT scan was performed as an emergency, and this revealed a fairly large left renal stone approximately 1 cm as well as a 3-mm calculus in the lower third of the ureter with mild proximal ureteral and renal pelvis dilatation on that side. The patient denied any previous history of stone disease. Patient also had never seen the urologist for difficulty voiding but has been experiencing the lower urinary tract symptoms including frequency and nocturia. PAST HISTORY: Remarkable essentially for asthma. PHYSICAL EXAMINATION: GENERAL: The patient was walking around comfortably. Gaines was in place. He did complain of local pain around the tip of the penis from the catheter. He was not wheezing. ABDOMEN: Unremarkable, and no flank pain was elicited. GENITOURINARY: Digital rectal exam revealed a fairly large firm prostate estimated approximately 70 g in size. RECOMMENDATION AND IMPRESSION: Patient's flank pain has not recurred for the past 24 hours. Patient's renal function is normal, and his fever is normal as well. I therefore chose to cancel his n.p.o. There is no need to go to the OR at this time for his distal stone. The larger stone in the kidney can be addressed electively at a later date. With respect to the patient's acute urinary retention, I ordered tamsulosin to be started twice a day with plans for a trial of voiding in approximately 36 hours. If he fails to void, a regular catheter will need to be inserted and decision made whether or not to simply see the patient as an outpatient to repeat a trial of voiding, or keep him in the hospital to proceed with cystoscopy and possibly TUR while he is here. However, this is to be decided pending his trial of voiding on Wednesday. In addition, despite the negative urine cultures so far, because of his indwelling Gaines, I did order Cipro so that if he does go into retention on Wednesday, he will have developed bacteruria and possibly the risk of becoming septic. MD CLARE MCNEAL/[id number]
[2018-10-19] MEDS: CIPROFLOXACIN 500 MG TABLET (RESTRICTED TO ID) PO SCH (20:57)
[2018-10-20] MEDS: LACTATED RINGERS SOLUTION 1,000 ML/1,000 ML INFUS.BAG IV SCH ×2 (03:05→22:16)
[2018-10-20] MEDS ORDERED: KETOROLAC TROMETHAMINE 15 MG/ML VIAL IVPUSH ONE (05:17)
[2018-10-20] MEDS: CIPROFLOXACIN 500 MG TABLET (RESTRICTED TO ID) PO SCH ×2 (05:29→11:52)
[2018-10-20 07:15] LABS: HEMOGLOBIN 13.6 GM/dL (11.7-16.9); MCH 30.3 pg (25.7-33.7); MCHC 34.1 g/dl (32.0-35.9); MEAN CELL VOLUME 89.1 fl (80-96); MEAN PLT VOLUME 7.1 fl (7.5-11.1); PLATELET COUNT 177 K/MM3 (134-434); RBC 4.49 M/mm3 (4.00-5.60); WHITE BLOOD COUNT 6.7 K/mm3 (4.0-10.0)
[2018-10-20 07:26] LABS: CALCIUM 8.6 mg/dL (8.5-10.1); CREATININE 1.1 mg/dL (0.55-1.3); POTASSIUM 3.9 mmol/L (3.5-5.1)
[2018-10-20] MEDS: TAMSULOSIN HCL 0.4 MG CAP PO SCH (08:30)
[2018-10-20] MEDS ORDERED: KETOROLAC TROMETHAMINE 30 MG/1 ML VIAL IVPUSH ONE (08:30)
[2018-10-20] MEDS: BUDESONIDE/FORMETEROL FUMARATE 160/4.5 mcg INHALER IH SCH ×2 (09:32→22:16)
--- NOTE | 2018-10-20 11:12 | PN ---
Physical Exam: SUBJECTIVE: Patient seen and examined at bedside. no acute events overnight. has not passed stone. denies fever, chills, cp, sob , n/v/d. seen by Uro, no intervention today. TOV david OBJECTIVE: Vital Signs Period Temp Pulse Resp BP Sys/Floyd Pulse Ox Last 24 Hr 98 F-98.2 F 69-84 18-20 110-142/59-78 97-98 GENERAL: Awake, alert, and fully oriented, in no acute distress. HEAD: Normal with no signs of trauma. EYES: Pupils equal, round and reactive to light, extraocular movements intact, sclera anicteric, conjunctiva clear. EARS, NOSE, THROAT: nares patent, oropharynx clear without exudates. Moist mucous membranes. NECK: Normal range of motion, supple LUNGS: CTAB HEART: RRR, normal S1 and S2 without murmur, rub or gallop. ABDOMEN: Soft, obese, nontender, not distended, normoactive bowel sounds, no guarding MSK: +L cva tenderness, improving LOWER EXTREMITIES: 2+ pt pulses, warm, well-perfused. No calf tenderness. No peripheral edema. : +CBI in place; continued irrigation NEUROLOGICAL: Cranial nerves II-XII intact. Normal speech. Normal gait. 5/5 motor strength UE, LE. PSYCHIATRIC: Cooperative. Good eye contact. SKIN: Warm, dry, normal turgor Laboratory Results - last 24 hr 10/20/18 10/20/18 06:30 06:30 WBC 6.7 RBC 4.49 Hgb 13.6 Hct 40.0 MCV 89.1 MCH 30.3 MCHC 34.1 RDW 13.0 Plt Count 177 MPV 7.1 L Sodium 140 Potassium 3.9 Chloride 107 Carbon Dioxide 27 Anion Gap 6 L BUN 24 H Creatinine 1.1 Est GFR (CKD-EPI)AfAm 79.52 Est GFR (CKD-EPI)NonAf 68.61 Random Glucose 86 Calcium 8.6 Active Medications Generic Name Dose Route Start Last Admin Trade Name Freq PRN Reason Stop Dose Admin Acetaminophen 650 mg 10/18/18 19:06 Tylenol - PO Q6H PRN PAIN LEVEL 7 - 10 Albuterol Sulfate 1 amp 10/18/18 19:09 Ventolin 0.083% Nebulizer Soln - NEB Q4H PRN SHORTNESS OF BREATH Budesonide/Formoterol Fumarate 2 puff 10/18/18 22:00 10/20/18 09:32 Symbicort 160/4.5mcg - IH 2 puff BID LEYDI Administration Lactated Ringer's 1,000 ml in 1,000 mls @ 75 mls/hr 10/18/18 19:45 10/20/18 03:05 Lactated Ringers Solution IV 75 mls/hr ASDIR LEYDI Administration Levofloxacin 500 mg 10/20/18 17:00 Levaquin - PO DAILY LEYDI Tamsulosin HCl 0.4 mg 10/19/18 08:30 10/20/18 08:30 Flomax - PO 0.4 mg DAILY@0830 LEYDI Administration EKG: requested, pending CTAP: 3 mm calc in distal L ureter, 3 cm from UVJ. w mild to mod L hydroureter. 1.1x0.9.x0.5cm calc non obst at L renal lower pole . gaines in place. non-obst phlebolith on R without hydro. moderate prostate enlargement. +lumbar degen disc dz. ASSESSMENT/PLAN: 68 y/o hungarian speaking M with hx asthma who presents to the ED c/o urinary retention over the past two days. #obstructing 3mm calc distal L ureter w/ L hydro - no signs of infection or SHI , flank pain improving. still has not passed stone. -c/w CBI, flomax, strain urine -IV LR 75 cc/hr, NS for CBI -pain control tylenol PRN, can give toradol. pt appears comfortable -uro on board: Dr. Abebe. -per uro, larger stone can be addressed electively jose enrique later date. TOV david to assess urinary retention. If fails catheter will need to be inserted and decision made whether or not to simply see the patient as an outpatient to repeat a TOV, or keep him in the hospital to proceed with cystoscopy and possibly TUR while he is here -Ucx neg, however will start levaquin 500 PO qd for ppx due to indwelling Gaines and retention if he fails TOV #hx asthma -c/w symbicort, nebs PRN #BPH -c/w flomax #hyperglycemia - resolved -a1c 5.2 #leukocytosis - resolved -likely 2/2 obstruction. cont to monitor not septic at this time #F/E/ N IV LR 75 cc/hr continue to follow lytes regular diet #PPX DVT: SQH tid #Dispo med-surg obs Visit type - Emergency Visit Emergency Visit: Yes ED Registration Date: 10/18/18 Care time: The patient presented to the Emergency Department on the above date and was hospitalized for further evaluation of their emergent condition. - New Patient This patient is new to me today: Yes Date on this admission: 10/20/18 - Critical Care Critical Care patient: No
--- NOTE | 2018-10-20 13:54 | PN ---
Teaching Attending Note Name of Resident: Vishnu Duffy ATTENDING PHYSICIAN STATEMENT I saw and evaluated the patient. I reviewed the resident's note and discussed the case with the resident. I agree with the resident's findings and plan as documented. SUBJECTIVE: No fever or chills. has pain in L flank. OBJECTIVE: NAD CV: RRR, no MRG Lungs: CTAB Ext: no edema Abd: soft, NT, ND, NL BS otto in. pink urine ASSESSMENT AND PLAN: 68 y/o man with h/o Asthma, who presented with pain in abd and hematuria and was found to have L obstructing uretheral stone with hydronephrosis. 1- Urinary retention 2- Obstructing L uretheral stone. Plan: - cont otto. - cont IVF - CBI - voiding trial tomorrow - cont flomax - no signs of UTI , but will continue abx due to continued obstruction. received 2 doses of cipro, and will cont with levaquin 500 mg daily. Cr cl 75 % . - strain all urine 2- DVT PX: SCDs.
[2018-10-20] MEDS: HEPARIN NA (PORCINE) 5,000 UNITS/ML 1ML VIAL SQ SCH ×2 (14:30→22:15)
[2018-10-21] MEDS: LACTATED RINGERS SOLUTION 1,000 ML/1,000 ML INFUS.BAG IV SCH (05:31)
[2018-10-21] MEDS: HEPARIN NA (PORCINE) 5,000 UNITS/ML 1ML VIAL SQ SCH ×2 (05:31→14:15)
[2018-10-21 07:58] LABS: CALCIUM 8.7 mg/dL (8.5-10.1); POTASSIUM 3.7 mmol/L (3.5-5.1)
[2018-10-21] MEDS: BUDESONIDE/FORMETEROL FUMARATE 160/4.5 mcg INHALER IH SCH (09:13)
[2018-10-21] MEDS: TAMSULOSIN HCL 0.4 MG CAP PO SCH (09:13)
[2018-10-21] MEDS ORDERED: MORPHINE SULFATE 2 MG/ML VIAL IVPUSH ONE (11:11)
[2018-10-21] MEDS ORDERED: KETOROLAC TROMETHAMINE 15 MG/ML VIAL IVPUSH PRN (13:49)
[2018-10-21 13:54] VITALS: BP 140/70; PULSE 62; TEMP 98.4
--- NOTE | 2018-10-21 14:48 | PN ---
Teaching Attending Note Name of Resident: Vishnu Duffy ATTENDING PHYSICIAN STATEMENT I saw and evaluated the patient. I reviewed the resident's note and discussed the case with the resident. I agree with the resident's findings and plan as documented. SUBJECTIVE: No fever , no chills , has L flank pain. urinated after otto removal OBJECTIVE: NAD, anxious , could not sit down CV: RRR, no MRG Lungs: CTAB Ext: no edema ASSESSMENT AND PLAN: 68 y/o man with h/o Asthma, who presented with pain in abd and hematuria and was found to have L obstructing uretheral stone with hydronephrosis. 1- Urinary retention 2- Obstructing L uretheral stone. Plan: - dc otto. passed voiding trial with 60 cc Post void residual - cont IVF - cont flomax - no signs of UTI , but will continue abx due to continued obstruction.. - strain all urine - will contact uro for further Recs - US to evaluate hydro. - xray to evaluate location of stone 2- DVT PX: SCDs. heparin sq
--- NOTE | 2018-10-21 17:39 | DS ---
Physical Exam: SUBJECTIVE: Patient seen and examined at bedside. no acute events overnight. has not passed stone. denies fever, chills, cp, sob , n/v/d. seen by Uro, no intervention today, will f/u outpt. passed TOV and urinating well OBJECTIVE: Vital Signs Period Temp Pulse Resp BP Sys/Floyd Pulse Ox Last 24 Hr 98.1 F-98.6 F 62-76 16-20 134-145/63-78 99-99 PHYSICAL EXAM GENERAL: Awake, alert, and fully oriented, in no acute distress. HEAD: Normal with no signs of trauma. EYES: Pupils equal, round and reactive to light, extraocular movements intact, sclera anicteric, conjunctiva clear. EARS, NOSE, THROAT: nares patent, oropharynx clear without exudates. Moist mucous membranes. NECK: Normal range of motion, supple LUNGS: CTAB HEART: RRR, normal S1 and S2 without murmur, rub or gallop. ABDOMEN: Soft, obese, nontender, not distended, normoactive bowel sounds, no guarding MSK: +L cva tenderness, improving LOWER EXTREMITIES: 2+ pt pulses, warm, well-perfused. No calf tenderness. No peripheral edema. : +CBI in place; continued irrigation NEUROLOGICAL: Cranial nerves II-XII intact. Normal speech. Normal gait. 5/5 motor strength UE, LE. PSYCHIATRIC: Cooperative. Good eye contact. SKIN: Warm, dry, normal turgor LABS Laboratory Results - last 24 hr 10/21/18 06:00 Sodium 140 Potassium 3.7 Chloride 108 H Carbon Dioxide 26 Anion Gap 6 L BUN 19 H Creatinine 1.0 Est GFR (CKD-EPI)AfAm 89.23 Est GFR (CKD-EPI)NonAf 76.99 Random Glucose 85 Calcium 8.7 EKG: requested, pending CTAP: 3 mm calc in distal L ureter, 3 cm from UVJ. w mild to mod L hydroureter. 1.1x0.9.x0.5cm calc non obst at L renal lower pole . otto in place. non-obst phlebolith on R without hydro. moderate prostate enlargement. +lumbar degen disc dz. [id number] US/KIDNEY / RENAL US Evaluate for left hydronephrosis Renal ultrasound No prior renal ultrasounds available for comparison. Compared to prior CT scan of the abdomen pelvis dated 10/18/2018 The right kidney measures 13.5 cm in sagittal length and appears unremarkable. Normal flow in the right renal vein. Visualized portion of the liver appears unremarkable. Left kidney measures 12 cm in sagittal length with moderate hydronephrosis. Previously visualized left renal stone was not seen on this exam. Left renal vein could not be visualized/ evaluated. IMPRESSION: Moderate left renal hydronephrosis. Previously visualized left renal stone was not seen on this exam Reported By: Anup Duran MD 10/21/18 0546 HOSPITAL COURSE: Date of Admission:10/18/18 Date of Discharge: 10/21/18 68 y/o maltese speaking M with hx asthma who presents to the ED c/o urinary retention over the past two days. #obstructing 3mm calc distal L ureter w/ mild to mod L hydro - no signs of infection or SHI, flank pain improving. still has not passed stone. retention resolved as pt passed TOV today -uro on board: Dr. Abebe. -s/p CBI, flomax -Ucx neg, s/p levaquin for ppx while w/ indwelling Otto while on CBI -pain controlled w/ tylenol PRN, toradol. pt will be dcd w/ toradol 10mg PO tid prn -pt will be cont w/ flomax 0.4mg bid at dc -pt will f/u next week 10/28/18 w/ Dr. Abebe in the office. no intervention planned at this time. per uro pt does not need abx at this time unless starts to develop infectious sxs -BPH may make it more difficult for pt to pass stone #hx asthma -c/w symbicort, nebs PRN #BPH -pt will be cont w/ flomax 0.4mg bid at dc #hyperglycemia - resolved -a1c 5.2 #leukocytosis - resolved -likely 2/2 obstruction. not septic at this time pt stabe and ready for dc w/ appropriate f/u Minutes to complete discharge: 37 Discharge Summary Reason For Visit: RETENTION OF URINE, OBSTRUCTIVE UROPATHY Current Active Problems Inability to urinate (Acute) Ureteral stone with hydronephrosis (Acute) Urinary retention (Acute) Condition: Improved - Instructions Diet, Activity, Other Instructions: you came in with a kidney stone. we gave you pain meds and IV fluids. your symptoms improved and no surgical intervention was indicated at this time. Urology Dr. Abebe will see you in his office for further care and monitoring. Please see him next week, on Wednesday of 10/28/18 Please resume your home meds Please take flomax 0.4mg twice a day to help you urinate and help you pass your stone Please take Toradol 10mg three times a day for your pain as needed You can also use tylenol as needed but do not use more than 4 grams within 24 hours Follow up with the following physicians: Primary care physician in [address] Abebe Wednesday10/28/18 If you experience any fevers, chills, chest pain, abdominal pain, nausea, vomit , blood in your urine, call 911 or go to the ER. continue to strain all urines Referrals: Mk Abebe MD [Staff Physician] - 10/28/18 Nasrin Collado MD [Primary Care Provider] - 1 Week Disposition: HOME - Home Medications Comprehensive Discharge Medication List: Ambulatory Orders Albuterol Sulfate Inhaler - [Ventolin HFA Inhaler -] 1 puff IH Q6H PRN 10/18/18 Budesonide/Formeterol Fumarate [SYMBICORT 160/4.5mcg -] 1 inh PO BID 10/18/18 Albuterol 0.083% Nebulizer Elizabeth [Ventolin 0.083% Nebulizer Soln -] 1 neb NEB Q4H PRN 10/19/18 Ketorolac Tromethamine [Toradol] 10 mg PO TID PRN 7 Days #21 tablet 10/21/18 Tamsulosin HCl [Flomax -] 0.4 mg PO BID 30 Days #60 cap.er.24h 10/21/18
[2018-10-21] MEDS ORDERED: TAMSULOSIN HCL 0.4 MG CAP PO SCH (22:00)
--- NOTE | 2018-10-25 10:07 | DS ---
DATE OF ADMISSION: 10/18/2018 DATE OF DISCHARGE: 10/21/2018 DATE OF DICTATION: 10/21/2018 TIME: 4:15 p.m. The patient had a trial of voiding today and was able to void. Nurses report that a postvoid residual was approximately 60 mL after he voided over 800 mL. The patient does continue to complain of left-sided flank pain, but seems to be ambulating quite well. When I first came in to see the patient, he was lying comfortably in bed. On questioning, he did report moderate pain in the left lower quadrant as well as in the left flank area. Ultrasound was performed today, showing moderate left hydro. In terms of a KUB, I believe that was done, but I do not see it reported as of yet nor do I see it listed. The patient's white count was last done yesterday and was normal at 6700. The patient's last creatinine from earlier this morning was 1, with a BUN of 19. At this time I would try to manage the pain with oral Toradol and breakthrough pain with Tylenol and codeine. I think the patient should be able to get discharged since he is not vomiting and is able to tolerate fluids. The stone reported was only 3 mm. I plan to see the patient next week in the office, at which time I will repeat a KUB. MD ANNETTE MORENO/[id number]
== END 2018-10-21 18:42 | disposition home or self-care (01) | DRG 694 ==
LOC: JER 13:47 → UNDOADMOB 19:10 → JERBED 19:10 → INTOOBSV 19:10 → OBSVTOIN 19:45 → JERBED 19:45 → J7W 20:43 → JERBED 21:18 → J7W 21:20
PROVIDERS: ADMIT Internal Medicine; ATTEND Internal Medicine
PROC: 0T9B70Z Drainage of Bladder with Drainage Device, Via Natural or Artificial Opening (ICD-10-PCS; principal; 2018-10-18)
DX: N13.2 Hydronephrosis with renal and ureteral calculous obstruction (principal); R33.9 Retention of urine, unspecified; D72.829 Elevated white blood cell count, unspecified; J45.909 Unspecified asthma, uncomplicated; N40.0 Benign prostatic hyperplasia without lower urinary tract symptoms; R73.9 Hyperglycemia, unspecified; E66.3 Overweight; Z68.28 Body mass index [BMI] 28.0-28.9, adult
CPT/HCPCS: 36415; 74176-TC; 76775-TC; 80048; 80053; 81003; 83036; 83735; 84100; 85025; 85027; 85610; 85730; 86850; 86900; 86901; 87086; 93005; 93010; 99285-25; J1644; J7030